=== PATIENT | female | born 1970 ===

== ENCOUNTER 2024-06-18 10:00 | Inpatient (IN) | payer OTHER ==
[~2024-06-18] VITALS: Ht 157.5 cm; Wt 93.0 kg
[2024-06-18] MEDS ORDERED: LOSARTAN POTAS100 MG PO (13:44)
[2024-06-18] MEDS ORDERED: HYDROCHLOROTHIA50 MG PO (13:44)
[2024-06-18] MEDS ORDERED: NORVASC5 MG PO (13:44)
[2024-06-18 13:45] VITALS: BP 119/81
[2024-06-28] MEDS ORDERED: DEXAMETHASONE SODIUM PHOSPHATE 4 MG/ML VIAL ONE (07:42)
[2024-06-29] MEDS ORDERED: DEXAMETHASONE SODIUM PHOSPHATE 4 MG/ML VIAL ONE (09:19)
[2024-06-29] MEDS ORDERED: MORPHINE SULFATE 4 MG/ML VIAL IV ONE (11:35)
== END 2024-06-29 13:20 | disposition home or self-care (01) | DRG 627 ==
LOC: O/R 06-28 06:17 → SURH 06-28 07:00 → O/R 06-29 13:20
PROVIDERS: ADMIT Surgery; ATTEND Surgery
PROC: 0GTG0ZZ Resection of Left Thyroid Gland Lobe, Open Approach (ICD-10-PCS; principal; 2024-06-28)
DX: C73 Malignant neoplasm of thyroid gland (principal); Z20.822 Contact with and (suspected) exposure to COVID-19; E04.2 Nontoxic multinodular goiter